=== PATIENT | male | born 1990 | race Caucasian/White ===

== ENCOUNTER 2017-04-13 09:37 | Emergency (ER) | payer OTHER ==
[2017-04-13 09:43] VITALS: PULSE 69; RESP 18
[2017-04-13] MEDS ORDERED: FLUORESCEIN SODIUM 1 MG STRIP OP ONE (09:54)
[2017-04-13] MEDS ORDERED: PROPARACAINE 0.5% 15 ML OPHT DROP ONE (09:54)
--- NOTE | 2017-04-13 10:33 | EDPHY ---
H & P Time Seen by Provider: 04/13/17 09:53 HPI/ROS: CHIEF COMPLAINT: Eye injury HISTORY OF PRESENT ILLNESS: 27-year-old male presents to the emergency department by private vehicle with injury to his right eye. The patient was at work using a torch and a both came back and hit his right eye. He was not wearing any eye protection. The incident happened just prior to arrival. He has mild blurry vision. He denies any other visual changes. Denies headache. He has a foreign body sensation in his right eye. ROS: Denies double vision. Denies symptoms in the left eye. Past Medical/Surgical History: Negative Social History: Single and lives in [place]. 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 Pupils:equal round and reactive to light EOMI Lids: no edema or swelling upper eyelid was everted and no foreign bodies noted. Skin: no proptosis, no periorbital erythema or swelling, no vesicles Conjunctivae: Injection noted in the right eye. No discharge. Left eye is clear. Cornea: After consent was obtained from the patient, proparacaine drops instilled into the right eye. With fluorescein strip and slit-lamp examination , the patient had uptake of dye in the inferior medial aspect of the eye between 3 and 5:00 position. Residual foreign body noted. This was easily removed with cotton swab. Anterior chamber:normal, no hyphema or hypopyon Constitutional: Initial Vital Signs Temperature (C) 37.0 C 04/13/17 09:41 Heart Rate 69 04/13/17 09:41 Respiratory Rate 18 04/13/17 09:41 Blood Pressure 136/71 H 04/13/17 09:41 O2 Sat (%) 97 04/13/17 09:41 O2 Delivery Mode Room Air Allergies/Adverse Reactions: shellfish derived Allergy (Severe, Verified 04/13/17 09:41) Swelling/neck,face,throat Sulfa (Sulfonamide Antibiotics) Allergy (Unknown, Verified 04/13/17 09:41) Home Medications: Medication Instructions Recorded No Medications [No Meds] 1 ea MISC 10/01/12 Ofloxacin 0.3% [Ocuflox] 1 - 2 drops RTEYE QID 7 Days btl 04/13/17 MDM/Departure - [facility] ED Course/Re-evaluation: 27-year-old male presents to the emergency department with right eye irritation. Patient had retained foreign body which is easily removed with cotton swab. The corneal abrasion secondary to a burn. He will be treated with Ocuflox drops to prevent infection was given ophthalmology referral. Patient was comfortable with this plan. His tetanus shot was 8 years ago. - Depart Disposition: Home, Routine, Self-Care Clinical Impression: Thermal burn of right cornea Qualifiers: Encounter type: initial encounter Qualified Code(s): T26.11XA - Burn of cornea and conjunctival sac, right eye, initial encounter Corneal foreign body Qualifiers: Encounter type: initial encounter Laterality: right Qualified Code(s): T15.01XA - Foreign body in cornea, right eye, initial encounter Condition: Good Instructions: Corneal Abrasion (ED), Eye Foreign Body (ED) Additional Instructions: Ocuflox drops 2 drops 4 times daily to the right eye for 1 week to prevent infection. Follow up with collection systems administrator in 48 hr to recheck. Ibuprofen 600 mg every 8 hr as needed for pain. Prescriptions: Ofloxacin 0.3% [Ocuflox] 1 - 2 drops RTEYE QID 7 Days btl Referrals: Herrera Sams MD [Medical Doctor] - 1-2 days without fail (Composing Machine Operator on -call)
[2017-04-13 10:44] VITALS: BP 115/62; TEMP 97.7; O2SAT 96
== END 2017-04-13 10:59 | disposition home or self-care (01) ==
PROC: 08C0XZZ Extirpation of Matter from Right Eye, External Approach (ICD-10-PCS; principal; 2017-04-13)
DX: T15.01XA Foreign body in cornea, right eye, initial encounter (principal); T26.11XA Burn of cornea and conjunctival sac, right eye, initial encounter; T31.0 Burns involving less than 10% of body surface; Z87.891 Personal history of nicotine dependence; W22.8XXA Striking against or struck by other objects, initial encounter; X19.XXXA Contact with other heat and hot substances, initial encounter; Y92.69 Other specified industrial and construction area as the place of occurrence of the external cause; Y99.0 Civilian activity done for income or pay; Y93.89 Activity, other specified